=== PATIENT | female | born 1960 | race Caucasian/White ===

== ENCOUNTER 2017-05-16 14:51 | Emergency (ER) | payer SELFPAY ==
[2017-05-16 15:13] VITALS: BP 142/95
[2017-05-16] MEDS ORDERED: Acetaminophen/oxyCODONE 325-5 MG Tab PO ONE (17:10)
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
--- NOTE | 2017-05-17 11:40 | CR ---
Cystic change within the lunate. No fracture.
--- NOTE | 2017-05-17 11:42 | CR ---
No evidence for fracture. Cystic change at the lunate.
== END 2017-05-16 18:45 | disposition home or self-care (01) ==
LOC: JP.ED 14:51
DX: S60.211A Contusion of right wrist, initial encounter (principal); Z88.0 Allergy status to penicillin; I10 Essential (primary) hypertension; F17.210 Nicotine dependence, cigarettes, uncomplicated; W18.30XA Fall on same level, unspecified, initial encounter
CPT/HCPCS: 73110; 73130; 73200; 99284; A9270; 99283

== ENCOUNTER 2018-05-23 12:46 | Emergency (ER) | payer MEDICAID ==
[2018-05-23 13:35] VITALS: BP 180/105
[2018-05-23] MEDS ORDERED: Ketorolac 60 MG/2 ML SDV IM ONE (13:55)
[2018-05-23] MEDS ORDERED: Acetaminophen/oxyCODONE 325-5 MG Tab PO ONE (13:56)
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
--- NOTE | 2018-05-23 14:48 | CR ---
Ribs 2V w Chest Lt CLINICAL HISTORY: Left chest pain FINDINGS: There is a nondisplaced fracture of the lateral aspect of the left sixth rib. Lungs are wel l-aerated IMPRESSION: Nondisplaced acute or subacute fracture of the left sixth rib.
== END 2018-05-23 16:04 | disposition home or self-care (01) ==
LOC: JP.ED 12:46
DX: S22.32XA Fracture of one rib, left side, initial encounter for closed fracture (principal); I10 Essential (primary) hypertension; F17.210 Nicotine dependence, cigarettes, uncomplicated; Z88.0 Allergy status to penicillin; Y04.0XXA Assault by unarmed brawl or fight, initial encounter; Y07.03 Male partner, perpetrator of maltreatment and neglect
CPT/HCPCS: 71101; 96372; 99284; A9270; J1885

== ENCOUNTER 2020-01-28 19:52 | Emergency (ER) | payer MEDICARE, MEDICAID ==
[2020-01-28 20:06] VITALS: BP 191/112; PULSE 102
[2020-01-28] MEDS ORDERED: Ketorolac 60 MG/2 ML SDV IM ONE (20:30)
[2020-01-28] MEDS ORDERED: Diphtheria,Pertussis(Acell),Tetanus Vaccine 0.5 ML SDV IM ONE (20:33)
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
[2020-01-28] MEDS ORDERED: Silver Sulfadiazine 1% Crm 50 GM Tube TOP SCH (21:00)
== END 2020-01-28 21:09 | disposition home or self-care (01) ==
LOC: JP.ED 19:52
DX: T20.26XA Burn of second degree of forehead and cheek, initial encounter (principal); I10 Essential (primary) hypertension; F41.9 Anxiety disorder, unspecified; F32.9 Major depressive disorder, single episode, unspecified; G35 Multiple sclerosis; Z79.899 Other long term (current) drug therapy; Z23 Encounter for immunization; F17.210 Nicotine dependence, cigarettes, uncomplicated; X12.XXXA Contact with other hot fluids, initial encounter; Z88.0 Allergy status to penicillin
CPT/HCPCS: 16020; 96372; 99283; A9270; J1885; 16000

== ENCOUNTER 2020-03-26 09:48 | Emergency (ER) | payer MEDICARE, MEDICAID ==
[2020-03-26] MEDS ORDERED: Sodium Chloride 0.9% 10 ML Syringe FLUSH PRN (10:59)
[2020-03-26] MEDS ORDERED: HYDROmorphone 0.5 MG/0.5 ML Syringe IVPUSH ONE (11:00)
[2020-03-26] MEDS ORDERED: Ketorolac 30 MG/ML SDV IVPUSH ONE (11:00)
--- NOTE | 2020-03-26 11:06 | EDM.PDOC ---
ED HPI GENERAL MEDICAL PROBLEM - General Chief Complaint: Chest Pain Stated Complaint: FROM CLINIC PAIN UNDER LEFT BREAST GOING IN SHOUL Time Seen by Provider: 03/26/20 11:00 Source of Information: Reports: Patient History Limitations: Reports: No Limitations - History of Present Illness INITIAL COMMENTS - FREE TEXT/NARRATIVE: Izabella is a 60 year old female, hx of HTN, depression, social smoker, presents to the ED today with c/o 5 day hx of left sided chest pain radiating to her left shoulder. Patient denies any injury. She has not taken anything for pain, movement and deep breathing make pain worse. Patient denies any cough/fever. Patient does endorse mild sob. Rest improves her symptoms. Patient reports significant family hx of heart problems. Patient denies any hx of this pain in the past. 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: Musculoskeletal History: Reports: Back Pain, Chronic, Fracture, Osteoporosis, Other (See Below) Other Musculoskeletal History: fractured back Neurological History: Reports: MS, Other (See Below) Other Neuro History: demylenation disease Psychiatric History: Reports: Anxiety, Depression - Infectious Disease History Infectious Disease History: Reports: Chicken Pox, MRSA, Other (See Below) Other Infectious Disease History: history of MRSA on skin from shaving with dull razor - multiple scars on skin from it - Past Surgical History Female Surgical History: Reports: Tubal Ligation Neurological Surgical History: Reports: Spinal Fusion, Other (See Below) Other Neurological Surgeries/Procedures: neck fusion and surgery for broken back Other Musculoskeletal Surgeries/Procedures:: neck fusion Social & Family History - Caffeine Use Caffeine Use: Reports: Coffee - Recreational Drug Use Recreational Drug Use: No ED ROS GENERAL - Review of Systems Review Of Systems: Comprehensive ROS is negative, except as noted in HPI. ED EXAM, GENERAL - Physical Exam Exam: See Below Exam Limited By: No Limitations General Appearance: Alert, WD/WN, No Apparent Distress Eye Exam: Bilateral Eye: EOMI Ears: Normal External Exam Nose: Normal Inspection Throat/Mouth: Normal Oropharynx Head: Atraumatic Neck: Normal Inspection, Supple Respiratory/Chest: No Respiratory Distress, Lungs Clear, Other (left chest wall tenderness under left breast) Cardiovascular: Normal Peripheral Pulses, Regular Rate, Rhythm, No Murmur Back Exam: Normal Inspection Extremities: Normal Inspection Neurological: Alert, Oriented, CN II-XII Intact Psychiatric: Normal Affect, Normal Mood Skin Exam: Warm, Dry, Intact. No: Rash Lymphatic: No Adenopathy EKG INTERPRETATION EKG Date: 03/26/20 Time: 11:06 Rhythm: NSR [place]: Normal P-Wave: Present QRS: Normal ST-T: Normal QT: Normal Course - Vital Signs Last Recorded V/S: Last Vital Signs Temp 36 C L 03/26/20 10:50 Pulse 97 03/26/20 10:50 Resp 16 03/26/20 10:50 BP 145/87 H 03/26/20 10:50 Pulse Ox 98 03/26/20 10:50 Izabella is a 60 year old female, hx of HTN, depression, social smoking hx, presents to the ED with c/o left chest pain radiating to left shoulder, progressive over the last few days. Please refer to HPI and focused exam. Patient's symptoms and presentation are consistent with pleurisy, however, given patient's risk factors for heart disease, EKG and blood work obtained including D Dimer and Troponin. EKG stable with NSR, no ectopy or ischemic findings. Blood work reassuring, undetectable troponin with normal D Dimer, CXR unremarkable. Patient will be discharged home with pleurisy, naproxen for pain, oxycodone for severe pain, smoking cessation encouraged. Patient can follow up with PCP in one week as needed, reasons to return to the ED discussed, patient agreeable to plan of care and discharged in stable condition. - Orders/Labs/Meds Orders: Active Orders 24 hr Category Date Time Status EKG Documentation Completion [RC] ASDIRECTED Care 03/26/20 10:52 Active Peripheral IV Care [RC] . DIRECTED Care 03/26/20 10:59 Active Chest 2V [CR] Stat Exams 03/26/20 11:51 Taken Sodium Chloride 0.9% [Saline Flush] Med 03/26/20 10:59 Active 10 ml FLUSH ASDIRECTED PRN Peripheral IV Insertion Adult [OM.PC] Routine Oth 03/26/20 10:59 Ordered EKG 12 Lead [EK] Stat Ther 03/26/20 10:52 Ordered Medication Orders Sodium Chloride (Saline Flush) 10 ml FLUSH ASDIRECTED PRN PRN Reason: Keep Vein Open Last Admin: 03/26/20 11:13 Dose: 10 ml Documented by: GIOVANNY Labs: Laboratory Tests 03/26/20 03/26/20 03/26/20 Range/Units 11:08 11:08 11:08 WBC 6.8 (4.5-11.0) K/uL RBC 4.99 (3.30-5.50) M/uL Hgb 13.2 (12.0-15.0) g/dL Hct 41.7 (36.0-48.0) % MCV 84 (80-98) fL MCH 27 (27-31) pg MCHC 32 (32-36) % Plt Count 213 (150-400) K/uL Neut % (Auto) 67 H (36-66) % Lymph % (Auto) 17 L (24-44) % [place] % (Auto) 13 H (2-6) % Eos % (Auto) 3 (2-4) % Baso % (Auto) 0 (0-1) % D-Dimer, Quantitative 299 (0.0-400.0) ng/mL Sodium 140 (140-148) mmol/L Potassium 3.8 (3.6-5.2) mmol/L Chloride 102 (100-108) mmol/L Carbon Dioxide 30 (21-32) mmol/L Anion Gap 8.4 (5.0-14.0) mmol/L BUN 16 D (7-18) mg/dL Creatinine 0.9 D (0.6-1.0) mg/dL Est Cr Clr Drug Dosing 60.07 mL/min Estimated GFR (MDRD) > 60 (>60) Glucose 77 (74-106) mg/dL Calcium 8.6 (8.5-10.1) mg/dL Total Bilirubin 0.8 (0.2-1.0) mg/dL AST 23 (15-37) U/L ALT 26 (12-78) U/L Alkaline Phosphatase 107 (46-116) U/L Troponin I < 0.017 (0.000-0.056) ng/mL C-Reactive Protein 2.95 H (0.0-0.3) mg/dL Total Protein 6.9 (6.4-8.2) g/dL Albumin 3.3 L (3.4-5.0) g/dL Globulin 3.6 H (2.3-3.5) g/dL Albumin/Globulin Ratio 0.9 L (1.2-2.2) Meds: Medications Generic Name Dose Route Start Last Admin Trade Name Freq PRN Reason Stop Dose Admin Sodium Chloride 10 ml 03/26/20 10:59 03/26/20 11:13 Saline Flush FLUSH 10 ml ASDIRECTED PRN Administration Keep Vein Open Discontinued Medications Generic Name Dose Route Start Last Admin Trade Name Freq PRN Reason Stop Dose Admin Hydromorphone HCl 0.5 mg 03/26/20 11:00 03/26/20 11:13 Dilaudid IVPUSH 03/26/20 11:01 0.5 mg ONETIME ONE Administration Ketorolac Tromethamine 30 mg 03/26/20 11:00 03/26/20 11:12 Toradol IVPUSH 03/26/20 11:01 30 mg ONETIME ONE Administration Departure - Departure Time of Disposition: 13:00 Disposition: Home, Self-Care 01 Condition: Good Clinical Impression: Pleurisy Instructions: Pleurisy, [id number] Referrals: Anish Samuels MD [Primary Care Provider] - Forms: ED Department Discharge Additional Instructions: I have prescribed you Naproxen for pain, this is an NSAID, avoid full strength aspirin and Ibuprofen while on this. Oxycodone for severe pain as prescribed as needed, do not drive or drink alcohol if you take this as it is a narcotic. I would recommend working on quitting smoking. Follow up with primary care in the next week for re-evaluation. Return here with any worsening symptoms. I hope you feel better soon. Sepsis Event Note (ED) - Evaluation Sepsis Screening Result: No Definite Risk - Focused Exam Vital Signs: Vital Signs Temp Pulse Resp BP Pulse Ox 03/26/20 10:50 36 C L 97 16 145/87 H 98 03/26/20 10:49 36 C L 97 16 145/87 H 98 - My Orders Last 24 Hours: My Active Orders 03/26/20 10:52 EKG Documentation Completion [RC] ASDIRECTED EKG 12 Lead [EK] Stat 03/26/20 10:59 Peripheral IV Care [RC] . DIRECTED Sodium Chloride 0.9% [Saline Flush] 10 ml FLUSH ASDIRECTED PRN Peripheral IV Insertion Adult [OM.PC] Routine 03/26/20 11:51 Chest 2V [CR] Stat - Assessment/Plan Last 24 Hours: My Active Orders 03/26/20 10:52 EKG Documentation Completion [RC] ASDIRECTED EKG 12 Lead [EK] Stat 03/26/20 10:59 Peripheral IV Care [RC] . DIRECTED Sodium Chloride 0.9% [Saline Flush] 10 ml FLUSH ASDIRECTED PRN Peripheral IV Insertion Adult [OM.PC] Routine 03/26/20 11:51 Chest 2V [CR] Stat
[2020-03-26 12:50] VITALS: BP 133/74; PULSE 82
--- NOTE | 2020-03-26 13:45 | CR ---
CHEST: 2 view CLINICAL HISTORY:Chest wall pain COMPARISON:2018 FINDINGS: Patient has developed a small left pleural effusion. No infiltrate is seen. Heart and pulmonary vascularity are normal. Impression: Small left pleural effusion.
== END 2020-03-26 12:52 | disposition home or self-care (01) ==
LOC: JP.ED 09:48
DX: R09.1 Pleurisy (principal); I10 Essential (primary) hypertension; F41.9 Anxiety disorder, unspecified; F32.9 Major depressive disorder, single episode, unspecified; Z88.0 Allergy status to penicillin; Z79.899 Other long term (current) drug therapy
CPT/HCPCS: 36415; 71046; 80053; 84484; 85025; 85379; 86140; 93005; 96374; 96375; 99284; J1170; J1885

== ENCOUNTER 2020-04-09 09:44 | Emergency (ER) | payer MEDICARE, MEDICAID ==
[2020-04-09 10:44] VITALS: BP 186/100; PULSE 78
--- NOTE | 2020-04-09 11:27 | EDM.PDOC ---
ED HPI GENERAL MEDICAL PROBLEM - General Chief Complaint: Respiratory Problem Stated Complaint: DIFFICULT TO BREATH Time Seen by Provider: 04/09/20 10:30 Source of Information: Reports: Patient, Family History Limitations: Reports: No Limitations - History of Present Illness INITIAL COMMENTS - FREE TEXT/NARRATIVE: 60-year-old female with intense left upper shoulder and chest pain for the past 2 days, she was seen 2 weeks ago for similar symptoms, it seemed to improve but over the past 2 days it is been very intense again. Hurts to breathe, patient is hyperdramatic and rocking back and forth holding her left shoulder. She is afebrile, denies a cough. Onset: Unknown/Unsure Worsens with: Reports: Breathing, Movement Associated Symptoms: Reports: No Other Symptoms. 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: Musculoskeletal History: Reports: Back Pain, Chronic, Fracture, Osteoporosis, Other (See Below) Other Musculoskeletal History: fractured back Neurological History: Reports: MS, Other (See Below) Other Neuro History: demylenation disease Psychiatric History: Reports: Anxiety, Depression - Infectious Disease History Infectious Disease History: Reports: Chicken Pox, MRSA, Other (See Below) Other Infectious Disease History: history of MRSA on skin from shaving with dull razor - multiple scars on skin from it - Past Surgical History Head Surgeries/Procedures: Reports: None Female Surgical History: Reports: Tubal Ligation Neurological Surgical History: Reports: Spinal Fusion, Other (See Below) Other Neurological Surgeries/Procedures: neck fusion and surgery for broken back Other Musculoskeletal Surgeries/Procedures:: neck fusion Social & Family History - Tobacco Use Smoking Status *Q: Current Every Day Smoker Years of Tobacco use: 40 Packs/Tins Daily: 0.5 Used Tobacco, but Quit: No Second Hand Smoke Exposure: No - Caffeine Use Caffeine Use: Reports: Coffee - Recreational Drug Use Recreational Drug Use: No ED ROS GENERAL - Review of Systems Review Of Systems: See Below Constitutional: Reports: Malaise. Denies: Fever, Chills HEENT: Denies: Throat Pain Respiratory: Reports: Pleuritic Chest Pain. Denies: Shortness of Breath, Cough Cardiovascular: Reports: Chest Pain. Denies: Palpitations GI/Abdominal: Denies: Nausea, Vomiting Skin: Denies: Rash Neurological: Denies: Headache Psychiatric: Reports: Anxiety ED EXAM, GENERAL - Physical Exam Exam: See Below Exam Limited By: No Limitations General Appearance: Alert, Moderate Distress Eye Exam: Bilateral Eye: Normal Inspection Head: Atraumatic Neck: Non-Tender Respiratory/Chest: No Respiratory Distress, Lungs Clear, Other (Any palpation over the upper anterior left chest or shoulder area causes her to wince in discomfort). No: Decreased Breath Sounds Cardiovascular: Regular Rate, Rhythm. No: Extra Beats Back Exam: Normal Inspection Extremities: No: Pedal Edema Neurological: Alert, Oriented, No Motor/Sensory Deficits Psychiatric: Anxious Course - Vital Signs Last Recorded V/S: Last Vital Signs Temp 97.3 F 04/09/20 10:26 Pulse 78 04/09/20 10:40 Resp 10 L 04/09/20 10:26 BP 186/100 H 04/09/20 10:40 Pulse Ox 95 04/09/20 10:40 - Orders/Labs/Meds Labs: Laboratory Tests 04/09/20 04/09/20 04/09/20 Range/Units 10:56 10:56 11:35 WBC 6.7 (4.5-11.0) K/uL RBC 5.49 (3.30-5.50) M/uL Hgb 14.6 (12.0-15.0) g/dL Hct 45.5 (36.0-48.0) % MCV 83 (80-98) fL MCH 27 (27-31) pg MCHC 32 (32-36) % Plt Count 245 (150-400) K/uL Neut % (Auto) 59 (36-66) % Lymph % (Auto) 26 (24-44) % Day % (Auto) 11 H (2-6) % Eos % (Auto) 3 (2-4) % Baso % (Auto) 1 (0-1) % Sodium 138 L (140-148) mmol/L Potassium 3.9 (3.6-5.2) mmol/L Chloride 102 (100-108) mmol/L Carbon Dioxide 25 (21-32) mmol/L Anion Gap 14.9 H (5.0-14.0) mmol/L BUN 15 (7-18) mg/dL Creatinine 0.8 (0.6-1.0) mg/dL Est Cr Clr Drug Dosing 66.19 mL/min Estimated GFR (MDRD) > 60 (>60) Glucose 128 H (74-106) mg/dL Calcium 9.0 (8.5-10.1) mg/dL Urine Color Yellow (YELLOW) Urine Appearance Cloudy A (CLEAR) Urine pH 7.5 (5.0-8.0) Ur Specific [place] 1.025 (1.008-1.030) Urine Protein Negative (NEGATIVE) mg/dL Urine Glucose (UA) Negative (NEGATIVE) mg/dL Urine Ketones Negative (NEGATIVE) mg/dL Urine Occult Blood Trace-intact H (NEGATIVE) Urine Nitrite Negative (NEGATIVE) Urine Bilirubin Negative (NEGATIVE) Urine Urobilinogen 0.2 (0.2-1.0) EU/dL Ur Leukocyte Esterase Negative (NEGATIVE) Urine RBC 0-5 (0-5) Urine WBC Not seen (0-5) Ur Epithelial Cells Not seen Amorphous Sediment Many Urine Bacteria Not seen Urine Mucus Not seen Urine Opiates Screen (NEGATIVE) Ur Oxycodone Screen (NEGATIVE) Urine Methadone Screen (NEGATIVE) Ur Propoxyphene Screen (NEGATIVE) Ur Barbiturates Screen (NEGATIVE) Ur Tricyclics Screen (NEGATIVE) Ur Phencyclidine Scrn (NEGATIVE) Ur Amphetamine Screen (NEGATIVE) U Methamphetamines Scrn (NEGATIVE) Urine MDMA Screen (NEGATIVE) U Benzodiazepines Scrn (NEGATIVE) U Cocaine Metab Screen (NEGATIVE) U Marijuana (THC) Screen (NEGATIVE) 04/09/20 Range/Units 11:35 WBC (4.5-11.0) K/uL RBC (3.30-5.50) M/uL Hgb (12.0-15.0) g/dL Hct (36.0-48.0) % MCV (80-98) fL MCH (27-31) pg MCHC (32-36) % Plt Count (150-400) K/uL Neut % (Auto) (36-66) % Lymph % (Auto) (24-44) % Day % (Auto) (2-6) % Eos % (Auto) (2-4) % Baso % (Auto) (0-1) % Sodium (140-148) mmol/L Potassium (3.6-5.2) mmol/L Chloride (100-108) mmol/L Carbon Dioxide (21-32) mmol/L Anion Gap (5.0-14.0) mmol/L BUN (7-18) mg/dL Creatinine (0.6-1.0) mg/dL Est Cr Clr Drug Dosing mL/min Estimated GFR (MDRD) (>60) Glucose (74-106) mg/dL Calcium (8.5-10.1) mg/dL Urine Color (YELLOW) Urine Appearance (CLEAR) Urine pH (5.0-8.0) Ur Specific [place] (1.008-1.030) Urine Protein (NEGATIVE) mg/dL Urine Glucose (UA) (NEGATIVE) mg/dL Urine Ketones (NEGATIVE) mg/dL Urine Occult Blood (NEGATIVE) Urine Nitrite (NEGATIVE) Urine Bilirubin (NEGATIVE) Urine Urobilinogen (0.2-1.0) EU/dL Ur Leukocyte Esterase (NEGATIVE) Urine RBC (0-5) Urine WBC (0-5) Ur Epithelial Cells Amorphous Sediment Urine Bacteria Urine Mucus Urine Opiates Screen Negative (NEGATIVE) Ur Oxycodone Screen Presumptive positive H (NEGATIVE) Urine Methadone Screen Negative (NEGATIVE) Ur Propoxyphene Screen Negative (NEGATIVE) Ur Barbiturates Screen Negative (NEGATIVE) Ur Tricyclics Screen Negative (NEGATIVE) Ur Phencyclidine Scrn Negative (NEGATIVE) Ur Amphetamine Screen Presumptive positive H (NEGATIVE) U Methamphetamines Scrn Presumptive positive H (NEGATIVE) Urine MDMA Screen Negative (NEGATIVE) U Benzodiazepines Scrn Negative (NEGATIVE) U Cocaine Metab Screen Negative (NEGATIVE) U Marijuana (THC) Screen Negative (NEGATIVE) - Re-Assessments/Exams Free Text/Narrative Re-Assessment/Exam: 04/13/20 08:52 Reviewed her recent ER visit, a 2 view chest x-ray showed a very small pleural effusion but otherwise was negative. She was diagnosed with pleurisy. A 2 view chest x-ray was repeated, CBC BMP and urine drug screen were also obtained. Unfortunately the drug screen returned positive for methamphetamine, the chest x-ray is now normal. The rest of her blood work is reassuring. When I confronted her about the methamphetamine abuse, and also the likelihood that the symptoms are related to that she became much less dramatic and symptomatic and settled down significantly. I explained to her that there is really no treatment options until her methamphetamine is out of her system. Departure - Departure Time of Disposition: 12:26 Disposition: Home, Self-Care 01 Clinical Impression: Methamphetamine abuse, Atypical chest pain - Discharge Information Instructions: Nonspecific Chest Pain, Adult Referrals: Anish Samuels MD [Primary Care Provider] - Forms: ED Department Discharge Care Plan Goals: Continue your current treatments, increase activity as tolerated and avoid methamphetamine use. Recheck next week if not improving. Sepsis Event Note (ED) - Evaluation Sepsis Screening Result: No Definite Risk
--- NOTE | 2020-04-09 12:10 | CR ---
CHEST: 2 view CLINICAL HISTORY:Dyspnea COMPARISON:March 2020 FINDINGS: Previously seen left pleural effusion has resolved. Lung gross are clear. Heart size and pulmonary vascularity are normal. Impression: No acute cardiac pulmonary process Left pleural effusion has resolved
== END 2020-04-09 12:26 | disposition home or self-care (01) ==
LOC: JP.ED 09:44
DX: R07.89 Other chest pain (principal); F15.10 Other stimulant abuse, uncomplicated; I10 Essential (primary) hypertension; F41.9 Anxiety disorder, unspecified; F32.9 Major depressive disorder, single episode, unspecified; F17.210 Nicotine dependence, cigarettes, uncomplicated; Z88.0 Allergy status to penicillin; Z79.899 Other long term (current) drug therapy
CPT/HCPCS: 36415; 71046; 71046-26; 80048; 80305-QW; 81001; 85025; 99285-25

== ENCOUNTER 2023-07-22 19:23 | Emergency (ER) | payer MEDICAID, MEDICARE ==
[2023-07-22 19:47] VITALS: BP 181/105; PULSE 99
== END 2023-07-22 20:46 | disposition home or self-care (01) ==
LOC: JP.ED 19:23
DX: M76.9 Unspecified enthesopathy, lower limb, excluding foot (principal); I10 Essential (primary) hypertension; Z88.0 Allergy status to penicillin
CPT/HCPCS: 73562-26-RT; 73562-RT; 99283

== ENCOUNTER 2024-11-19 20:26 | Emergency (ER) | payer MEDICARE ==
[2024-11-19] MEDS ORDERED: Naloxone 0.4 MG/ML SDV IVPUSH PRN ×2 (21:48→22:12)
[2024-11-19] MEDS: HYDROmorphone 0.5 MG/0.5 ML Syringe IVPUSH ONE (22:25)
[2024-11-19] MEDS: Diphtheria,Pertussis(Acell),Tetanus Vaccine 0.5 ML Syringe IM ONE (22:35)
[2024-11-19] MEDS: Rabies Vaccine (Avian) 2.5 Unit Inj Kit IM ONE (22:36)
[2024-11-19] MEDS: metroNIDAZOLE/Normal Saline 500 MG in Premix Bag 1 BAG IV ONE (22:42)
[2024-11-19] MEDS: HYDROmorphone 1 MG/ML Syringe IM ONE (22:45)
[2024-11-19] MEDS: Doxycycline 100 MG Cap PO ONE (22:46)
[2024-11-19] MEDS: Bacitracin Oint 1 GM U/D Packet TOP ONE (23:25)
[2024-11-19] MEDS: Rabies Immune Globulin/PF (HyperRAB) 300 UNIT/ML 1 ML SDV IM ONE (23:26)
[2024-11-19] MEDS: Rabies Immune Globulin/PF (HyperRAB) 300 UNIT/ML 5 ML SDV IM ONE (23:26)
[2024-11-19] MEDS: Lidocaine 1% with EPINEPHrine 1:100,000 20 ML MDV INJECT ONE (23:59)
[2024-11-20 00:21] VITALS: BP 157/94; PULSE 81
== END 2024-11-20 00:05 | disposition home or self-care (01) ==
LOC: EDBD → JP.ED 20:26
DX: S61.250A Open bite of right index finger without damage to nail, initial encounter (principal); S61.051A Open bite of right thumb without damage to nail, initial encounter; S61.252A Open bite of right middle finger without damage to nail, initial encounter; S61.451A Open bite of right hand, initial encounter; I10 Essential (primary) hypertension; F17.210 Nicotine dependence, cigarettes, uncomplicated; Z23 Encounter for immunization; Z88.0 Allergy status to penicillin; Z79.899 Other long term (current) drug therapy; W55.01XA Bitten by cat, initial encounter; Y93.89 Activity, other specified
CPT/HCPCS: 12002; 73130; 90375; 90471; 90675; 90715; 96365; 96372; 96375; 99283; A9270; J1836